=== PATIENT | female | born 1950 | race African-American/Black ===

== ENCOUNTER 2021-09-03 15:15 | Inpatient (IN) | payer MEDICARE, MEDICAID ==
[~2021-09-03] VITALS: Ht 160 cm; Wt 124.7 kg
[2021-09-03] MEDS ORDERED: VANCOMYCIN PER PHARMACY MC ONE (16:30)
[2021-09-03] MEDS ORDERED: DIPHTH,PERTUSS(ACELL),TET TOX 0.5 ML DISP.SYRIN. VAX IM ONE (16:30)
[2021-09-03] MEDS ORDERED: PIPERACILLIN/TAZOBACTAM 4.5 GM in IV NORMAL SALINE 100ML 100 ML IV ONE (16:30)
[2021-09-03] MEDS ORDERED: VANCOMYCIN 2 GM in IV NORMAL SALINE 500ML BAG 500 ML IV ONE (16:45)
[2021-09-03] MEDS ORDERED: CEFEPIME HCL IV Push 2 GM VIAL. IVP ONE (16:45)
--- NOTE | 2021-09-03 17:05 | RAD ---
Exam Date: 09/03/2021 4:41 PM US DPLX VENOUS EXTREMITY LOWER LT Indication: Reason: LLE wound, swelling / Spl. Instructions: / History: . INDICATION: Lower extremity pain/swelling TECHNIQUE: Grayscale sonogram, color Doppler, and spectral Doppler waveform analysis of the lower ex tremity venous system was performed on the left. FINDINGS: The left common femoral, superficial femoral, central greater saphenous, popliteal, posterior tibial and peroneal veins are compressible and demonstrate normal color Doppler flow and normal spontaneous phasic waveforms or normal response to augmentation. IMPRESSION: No evidence of deep venous thrombosis in the left lower extremity. Electronically signed by: Shaq Mcmahon MD (09/03/2021 5:03 PM) [facility]
[2021-09-03] MEDS ORDERED: ONDANSETRON PF 4 MG/2 ML VIAL. IVP PRN ×2 (18:45→19:45)
[2021-09-03] MEDS ORDERED: MORPHINE SULFATE 2 MG/ML INJ. IVP PRN (18:45)
--- NOTE | 2021-09-03 19:01 | PHYS DOC ---
Past Medical History Past Surgical History: No Surgical History Smoking Status: Former Smoker Alcohol Use: None General Adult EDM: Chief Complaint: CELLULITIS HPI: HPI: Patient is a 71 year old female with a history of lymphedema to bilateral lower extremities presented to the ED today complaining of a wound on the left lower extremity that she has had since April 2021. Patient states she has been following up with her own PCP as well as the wound clinic. She states she has been taking liquid cephalexin since April 2021 now with no improvement. She states she was seen by the PCP today and they told her the wound has gotten worse and they requested her to come to the ED for IV antibiotics. Patient denies any fever. Denies any nausea, vomiting. Review of Systems: Review of Systems: Constitutional: Denies fever or chills. [] Eyes: Denies change in visual acuity. [] HENT: Denies nasal congestion or sore throat. [] Respiratory: Denies cough or shortness of breath. [] Cardiovascular: Denies chest pain or edema. [] GI: Denies abdominal pain, nausea, vomiting, bloody stools or diarrhea. [] : Denies dysuria. [] Musculoskeletal: Denies back pain or joint pain. [] Integument: Reports left lower extremity wound Neurologic: Denies headache, focal weakness or sensory changes. [] Psychiatric: Denies depression or anxiety. [] Heart Score: C/O Chest Pain: N/A Risk Factors: Risk Factors: DM, Current or recent (<one month) smoker, HTN, HLP, family history of CAD, obesity. Risk Scores: Score 0 - 3: 2.5% MACE over next 6 weeks - Discharge Home Score 4 - 6: 20.3% MACE over next 6 weeks - Admit for Clinical Observation Score 7 - 10: 72.7% MACE over next 6 weeks - Early Invasive Strategies Current Medications: Current Medications Medications (Trade) Dose Ordered Sig/Jamie Start Time Stop Time Status Last Admin Dose Admin Cefepime HCl (Maxipime) 2 gm 1X ONCE 09/03/21 16:45 09/03/21 16:46 DC 09/03/21 17:08 2 GM Diphtheria/ Tetanus/Acell Pertussis (Boostrix) 0.5 ml ONCE ONCE 09/03/21 16:30 09/03/21 16:33 DC 09/03/21 17:53 0.5 ML Piperacillin Sod/ Tazobactam Sod 4.5 gm/Sodium Chloride 100 ml @ 200 mls/hr 1X ONCE 09/03/21 16:30 09/03/21 16:59 UNV Vancomycin HCl (Vanco Per Pharmacy) 1 each 1X ONCE 09/03/21 16:30 09/03/21 16:31 UNV Vancomycin HCl 2 gm/Sodium Chloride 500 ml @ 250 mls/hr 1X ONCE 09/03/21 16:45 09/03/21 18:44 DC 09/03/21 17:09 250 MLS/HR Allergies: Allergies: Allergies Coded Allergies Type Severity Reaction Last Updated Verified Penicillins Allergy Intermediate 09/03/21 Yes Physical Exam: PE: Constitutional: Well developed, well nourished, no acute distress, non-toxic appearance. [] HENT: Normocephalic, atraumatic, bilateral external ears normal, oropharynx moist, no oral exudates, nose normal. [] Eyes: PERRLA, EOMI, conjunctiva normal, no discharge. [] Neck: Normal range of motion, no tenderness, supple, no stridor. [] Cardiovascular:Heart rate regular rhythm, no murmur [] Lungs & Thorax: Bilateral breath sounds clear to auscultation [] Abdomen: Bowel sounds normal, soft, no tenderness, no masses, no pulsatile masses. [] Skin: Bilateral lower extremities with chronic lymphedema. Left lower extremity with a wound starting from the mid winter to the back of the leg. Wound roughly 12 x 10 cm. The wound is clear drainage draining and smelling. + Bilateral pedal pulses Back: No tenderness, no CVA tenderness. Extremities: See skin documentation Neurologic: Alert and oriented X 3, normal motor function, normal sensory function, no focal deficits noted. [] Psychologic: Affect normal, judgement normal, mood normal. [] Current Patient Data: Vital Signs: Vital Signs Date Time Temp Pulse Resp B/P (MAP) Pulse Ox O2 Delivery O2 Flow Rate FiO2 09/03/21 18:36 88 19 230/92 (138) 98 Room Air 09/03/21 16:00 98.2 98.2 EKG: EKG: [] Radiology/Procedures: Radiology/Procedures: []PROCEDURE: VENOUS LOWER EXTREMITY LEFT Exam Date: 09/03/2021 4:41 PM US DPLX VENOUS EXTREMITY LOWER LT Indication: Reason: LLE wound, swelling / Spl. Instructions: / History: . INDICATION: Lower extremity pain/swelling TECHNIQUE: Grayscale sonogram, color Doppler, and spectral Doppler waveform dagmar lysis of the lower extremity venous system was performed on the left. FINDINGS: The left common femoral, superficial femoral, central greater saphenous, popliteal, posterior tibial and peroneal veins are compressible and demonstrate normal color Doppler flow and normal spontaneous phasic waveforms or normal response to augmentation. IMPRESSION: No evidence of deep venous thrombosis in the left lower extremity. Electronically signed by: Nick Mcmahon MD (09/03/2021 5:03 PM) [facility] DICTATED and SIGNED BY: NICK MCMAHON MD DATE: 09/03/211702 Course & Med Decision Making: Course & Med Decision Making Pertinent Labs and Imaging studies reviewed. (See chart for details) This a 71-year-old female patient with history of lymphedema presenting today with with a wound on the left lower extremity she has had since April 2022. She has been taking cephalexin since April with no improvement. Was sent to the ED for IV antibiotics. Venous Doppler of the left lower extremity is negative. Labs are still pending. Started on cefepime and vancomycin Wound consult placed Patient's blood pressure was 249/148 with a heart rate of 91. At this patient continues to deny history of hypertension and she states she does not take any pills so she will not take blood pressure medicine for now. Spoke with Dr. Rubio who accepted patient for admission. Mary Disclaimer: Mary Disclaimer: This electronic medical record was generated, in whole or in part, using a voice recognition dictation system. Departure Departure Impression: Primary Impression: Wound of left lower extremity Qualified Codes: S81.802A - Unspecified open wound, left lower leg, initial encounter Additional Impression: Elevated blood pressure reading Disposition: ADMITTED INPATIENT Condition: STABLE Referrals: NO PCP (PCP) CORY MACIAS BRUSHER TENDER Sep 03, 2021 19:01
[2021-09-03] MEDS ORDERED: VANCOMYCIN PER PHARMACY MC PRN (19:30)
[2021-09-03] MEDS ORDERED: CALCIUM CARBONATE 500 MG TAB.CHEW PO PRN (19:45)
[2021-09-03] MEDS ORDERED: ACETAMINOPHEN 325 MG TABLET. PO PRN (19:45)
[2021-09-03] MEDS ORDERED: ELECTROLYTE (NON-ICU) PROTOCOL. MC PRN (19:45)
[2021-09-03] MEDS ORDERED: MORPHINE SULFATE 2 MG/ML INJ. IV PRN ×2 (19:45)
[2021-09-03 20:10] VITALS: BP 241/98
[2021-09-03] MEDS ORDERED: CEPH250S30 PO (20:21)
[2021-09-03] MEDS ORDERED: BETA60LO4 TP (20:23)
[2021-09-03] MEDS ORDERED: TRIA15OI TP (20:23)
[2021-09-03] MEDS: SENNOSIDES/DOCUSATE 8.6/50MG TABLET. PO SCH (21:00)
[2021-09-03] MEDS: metroNIDAZOLE 500 MG TABLET PO SCH (21:01)
[2021-09-03] MEDS: HEPARIN for SUB-Q USE 5,000 UNIT/ML VIAL. SQ SCH (21:08)
[2021-09-03 21:20] LABS: BASO # 0.1 x10^3/uL (0.0-0.2); BASO % 1 % (0-3); EOS # 0.2 x10^3/uL (0.0-0.7); EOS % 1 % (0-3); HEMATOCRIT 39.9 % (36.0-47.0); HEMOGLOBIN 12.5 g/dL (12.0-15.5); LYMPH # 2.1 x10^3/uL (1.0-4.8); LYMPH % 20 % (24-48); MEAN CORPUSCULAR HEMOGLOBIN 26 pg (25-35); MEAN CORPUSCULAR HGB CONC 31 g/dL (31-37); MEAN CORPUSCULAR VOLUME 84 fL (79-100); MONO # 0.9 x10^3/uL (0.0-1.1); MONO % 8 % (0-9); NEUT # 7.6 x10^3/uL (1.8-7.7); NEUT % 71 % (31-73); PLATELET COUNT 219 x10^3/uL (140-400); RED BLOOD COUNT 4.75 x10^6/uL (3.50-5.40); RED CELL DISTRIBUTION WIDTH 15.4 % (11.5-14.5); WHITE BLOOD COUNT 10.8 x10^3/uL (4.0-11.0)
[2021-09-03 21:43] LABS: CALCIUM 9.1 mg/dL (8.5-10.1); CREATININE 1.1 mg/dL (0.6-1.0); GFR 59.2; POTASSIUM 4.2 mmol/L (3.5-5.1)
[2021-09-03 21:48] LABS: ALBUMIN 3.5 g/dL (3.4-5.0); ALBUMIN/GLOBULIN RATIO 0.9 (1.0-1.7); TOTAL BILIRUBIN 0.3 mg/dL (0.2-1.0); TOTAL PROTEIN 7.2 g/dL (6.4-8.2)
[2021-09-03 23:22] VITALS: BP 191/78
--- NOTE | 2021-09-04 00:40 | PDOC1 ---
History and Physical Date of Service: DOS: This is an entry for September 03 Allergies: Allergies: Coded Allergies: Penicillins (Verified Allergy, Intermediate, 09/03/21) Current Medications: Current Medications Current Medications Piperacillin Sod/ Tazobactam Sod 4.5 gm/Sodium Chloride 100 ml @ 200 mls/hr 1X ONCE IV ; Start 09/03/21 at 16:30; Stop 09/03/21 at 16:59; Status UNV Vancomycin HCl (Vanco Per Pharmacy) 1 each 1X ONCE MC ; Start 09/03/21 at 16:30; Stop 09/03/21 at 19:38; Status DC Diphtheria/ Tetanus/Acell Pertussis (Boostrix) 0.5 ml ONCE ONCE VAX IM Last administered on 09/03/21at 17:53; Start 09/03/21 at 16:30; Stop 09/03/21 at 16:33; Status DC Cefepime HCl (Maxipime) 2 gm 1X ONCE IVP Last administered on 09/03/21at 17:08; Start 09/03/21 at 16:45; Stop 09/03/21 at 16:46; Status DC Vancomycin HCl 2 gm/Sodium Chloride 500 ml @ 250 mls/hr 1X ONCE IV Last administered on 09/03/21at 17:09; Start 09/03/21 at 16:45; Stop 09/03/21 at 18:44; Status DC Ondansetron HCl (Zofran) 4 mg PRN Q8HRS PRN IVP NAUSEA/VOMITING; Start 09/03/21 at 18:45; Stop 09/04/21 at 18:44 Morphine Sulfate (Morphine Sulfate) 2 mg PRN Q2HR PRN IVP PAIN; Start 09/03/21 at 18:45; Stop 09/04/21 at 18:44 Hydralazine HCl (Apresoline Inj) 10 mg PRN Q4HRS PRN IVP ELEVATED BP, SEE COMM ENTS; Start 09/03/21 at 18:45 Cefepime HCl (Maxipime) 2 gm Q12HR IVP ; Start 09/04/21 at 05:00 Vancomycin HCl (Vanco Per Pharmacy) 1 each PRN DAILY PRN MC SEE COMMENTS; Start 09/03/21 at 19:30 Metronidazole (Flagyl) 500 mg Q8HRS PO Last administered on 09/03/21at 21:01; Start 09/03/21 at 22:00 Ondansetron HCl (Zofran) 4 mg PRN Q6HRS PRN IVP NAUSEA/VOMITING; Start 09/03/21 at 19:45 Calcium Carbonate/ Glycine (Tums) 500 mg PRN Q3HRS PRN PO UPSET STOMACH; Start 09/03/21 at 19:45 Info (Non-Icu Electrolyte Protocol) 1 ea PRN DAILY PRN MC SEE COMMENTS; Start 09/03/21 at 19:45 Morphine Sulfate (Morphine Sulfate) 1 mg PRN Q1HR PRN IV PAIN-SEE COMMENTS; Start 09/03/21 at 19:45 Morphine Sulfate (Morphine Sulfate) 2 mg PRN Q1HR PRN IV PAIN-SEE COMMENTS; Start 09/03/21 at 19:45 Acetaminophen (Tylenol) 650 mg PRN Q6HRS PRN PO Headaches, Temp > 101.5F; Start 09/03/21 at 19:45 Senna/Docusate Sodium (Senna Plus) 1 tab BID PO ; Start 09/03/21 at 21:00 Heparin Sodium (Porcine) (Heparin Sodium) 5,000 unit Q8HRS SQ Last administered on 09/03/21at 21:08; Start 09/03/21 at 20:00 Active Scripts Active Reported Triamcinolone Acetonide 0.1% Oint (Triamcinolone Acetonide) 15 Gm Oint...g. 1 Ilana TP BID MIX WITH EUCERIN DIRECTED BY PHYSICIAN Betamethasone Valerate 60 Ml Lotion 60 Ml TP BID Cephalexin 250 Mg/5 Ml Susp.recon 10 Ml PO BID ROS: Review of Systems Review of System REVIEW OF SYSTEMS: GENERAL: Denies weakness SKIN: No bruising, hair changes or rashes. EYES: No blurred, double or loss of vision. NOSE AND THROAT: No history of nosebleeds, hoarseness or sore throat. HEART: No history of palpitations, chest pain or shortness of breath on exertion. LUNGS: Denies cough, hemoptysis, wheezing or shortness of breath. GASTROINTESTINAL: Denies changes in appetite, nausea, vomiting, diarrhea or constipation. GENITOURINARY: No history of frequency, urgency, hesitancy or nocturia. NEUROLOGIC: Denies history of numbness, tingling, or tremor. PSYCHIATRIC: No history of panic, anxiety or depression. ENDOCRINE: No history of heat or cold intolerance, polyuria or polydipsia. EXTREMITIES: Denies joint pain, pain on walking or stiffness. Physical Exam: Vital Signs: Vital Signs Date Time Temp Pulse Resp B/P (MAP) Pulse Ox O2 Delivery O2 Flow Rate FiO2 09/03/21 23:22 98.6 82 16 191/78 (115) 94 Room Air 98.6 Physcial Exam: GEN: No apparent distress. Alert and oriented HEENT: Normal cephalic, atraumatic, external auditory canals are patent EYES: Extraocular muscles are intact, pupil are equally round and reactive to light and accommodation MUSCULOSKELETAL: Well developed , well nourished, good range of motion ENDOCRINE: No thyromegaly was palpated LYMPHATICS: No cervical chain or axillary nodes were noted HEMATOPOIETIC: No bruising NECK: Supple, no JVD, no thyromegaly was noted LUNGS: Clear to auscultation in all lung diaz without rhonchi or wheezing HEART: RRR, S!, S2 present. Peripheral pulses intact, no obvious murmurs noted ABDOMEN: Soft, nontender. Positive bowel sounds, no organomegaly, normal bow el sounds EXTREMITIES: Without clubbing, cyanosis, or edema. Pedal pulses intact. Negative Homans sign NEUROLOGIC: Normal speech and tone. A&O x 3, moves all extremities, no obvious focal deficits PSYCHIATRIC: Normal affect, normal mood. Stable SKIN: No ulcerations or rashes, good skin turgor, no jaundice VASCULAR: Good capillary refill, neurovascular bundle appears to be intact Labs: Labs: Laboratory Tests Test 09/03/21 21:15 White Blood Count 10.8 x10^3/uL (4.0-11.0) Red Blood Count 4.75 x10^6/uL (3.50-5.40) Hemoglobin 12.5 g/dL (12.0-15.5) Hematocrit 39.9 % (36.0-47.0) Mean Corpuscular Volume 84 fL (79-100) Mean Corpuscular Hemoglobin 26 pg (25-35) Mean Corpuscular Hemoglobin Concent 31 g/dL (31-37) Red Cell Distribution Width 15.4 % (11.5-14.5) Platelet Count 219 x10^3/uL (140-400) Neutrophils (%) (Auto) 71 % (31-73) Lymphocytes (%) (Auto) 20 % (24-48) Monocytes (%) (Auto) 8 % (0-9) Eosinophils (%) (Auto) 1 % (0-3) Basophils (%) (Auto) 1 % (0-3) Neutrophils # (Auto) 7.6 x10^3/uL (1.8-7.7) Lymphocytes # (Auto) 2.1 x10^3/uL (1.0-4.8) Monocytes # (Auto) 0.9 x10^3/uL (0.0-1.1) Eosinophils # (Auto) 0.2 x10^3/uL (0.0-0.7) Basophils # (Auto) 0.1 x10^3/uL (0.0-0.2) Erythrocyte Sedimentation Rate 27 (0-25) Sodium Level 144 mmol/L (136-145) Potassium Level 4.2 mmol/L (3.5-5.1) Chloride Level 107 mmol/L (98-107) Carbon Dioxide Level 27 mmol/L (21-32) Anion Gap 10 (6-14) Blood Urea Nitrogen 18 mg/dL (7-20) Creatinine 1.1 mg/dL (0.6-1.0) Estimated GFR (Cockcroft-Gault) 59.2 BUN/Creatinine Ratio 16 (6-20) Glucose Level 102 mg/dL (70-99) Lactic Acid Level 0.7 mmol/L (0.4-2.0) Calcium Level 9.1 mg/dL (8.5-10.1) Total Bilirubin 0.3 mg/dL (0.2-1.0) Aspartate Amino Transf (AST/SGOT) 10 U/L (15-37) Alanine Aminotransferase (ALT/SGPT) 13 U/L (14-59) Alkaline Phosphatase 61 U/L (46-116) C-Reactive Protein, Quantitative 5.9 mg/L (0-3.3) Total Protein 7.2 g/dL (6.4-8.2) Albumin 3.5 g/dL (3.4-5.0) Albumin/Globulin Ratio 0.9 (1.0-1.7) Procalcitonin < 0.10 ng/mL (0.00-0.10) Laboratory Tests Test 09/03/21 21:15 White Blood Count 10.8 x10^3/uL (4.0-11.0) Red Blood Count 4.75 x10^6/uL (3.50-5.40) Hemoglobin 12.5 g/dL (12.0-15.5) Hematocrit 39.9 % (36.0-47.0) Mean Corpuscular Volume 84 fL (79-100) Mean Corpuscular Hemoglobin 26 pg (25-35) Mean Corpuscular Hemoglobin Concent 31 g/dL (31-37) Red Cell Distribution Width 15.4 % (11.5-14.5) Platelet Count 219 x10^3/uL (140-400) Neutrophils (%) (Auto) 71 % (31-73) Lymphocytes (%) (Auto) 20 % (24-48) Monocytes (%) (Auto) 8 % (0-9) Eosinophils (%) (Auto) 1 % (0-3) Basophils (%) (Auto) 1 % (0-3) Neutrophils # (Auto) 7.6 x10^3/uL (1.8-7.7) Lymphocytes # (Auto) 2.1 x10^3/uL (1.0-4.8) Monocytes # (Auto) 0.9 x10^3/uL (0.0-1.1) Eosinophils # (Auto) 0.2 x10^3/uL (0.0-0.7) Basophils # (Auto) 0.1 x10^3/uL (0.0-0.2) Erythrocyte Sedimentation Rate 27 (0-25) Sodium Level 144 mmol/L (136-145) Potassium Level 4.2 mmol/L (3.5-5.1) Chloride Level 107 mmol/L (98-107) Carbon Dioxide Level 27 mmol/L (21-32) Anion Gap 10 (6-14) Blood Urea Nitrogen 18 mg/dL (7-20) Creatinine 1.1 mg/dL (0.6-1.0) Estimated GFR (Cockcroft-Gault) 59.2 BUN/Creatinine Ratio 16 (6-20) Glucose Level 102 mg/dL (70-99) Lactic Acid Level 0.7 mmol/L (0.4-2.0) Calcium Level 9.1 mg/dL (8.5-10.1) Total Bilirubin 0.3 mg/dL (0.2-1.0) Aspartate Amino Transf (AST/SGOT) 10 U/L (15-37) Alanine Aminotransferase (ALT/SGPT) 13 U/L (14-59) Alkaline Phosphatase 61 U/L (46-116) C-Reactive Protein, Quantitative 5.9 mg/L (0-3.3) Total Protein 7.2 g/dL (6.4-8.2) Albumin 3.5 g/dL (3.4-5.0) Albumin/Globulin Ratio 0.9 (1.0-1.7) Procalcitonin < 0.10 ng/mL (0.00-0.10) Justifications for Admission Other Justification VERO MARES MD Sep 04, 2021 00:40
--- NOTE | 2021-09-04 01:17 | NUR ---
Pharmacy Vancomycin Dosing Note S:Consulted to monitor and dose vancomycin started . O:JEANNE GLEZ is a 71 year old F with Cellulitis . Height: 5 feet, 3 inches Weight: 125.2 kg [place] Body Weight: 52.40 Adjusted Body Weight: 81.52 Dosing Weight: Actual Other Antibiotics: cefepime 4/5 - metronidazole 4/5 - LABS: Last BUN: 18 Last Creatinine: 1.1 Creatinine Clearance: 60 mL/min Last WBC: 10.8 Last Procalcitonin: <0.10 Tmax (past 24 hours): 98.6 Microbiology: I/O: Drug Levels: Last level: on at Last dose given 09/03/21 at 1700 Vancomycin Dosing: Loading Dose: x1 Dosing Weight: Actual Target Trough: 10-20 A: Based on: WEIGHT, RENAL FUNCTION, INFECTION TYPE, P: 1. INITIATE Vancomycin 2000 mg IV q18h 2. Follow up Trough level on 09/05/21 at 2230 3. Pharmacy will continue to monitor, follow and adjust therapy as needed. MARTA MARES [facility], 09/04/21 0118
[2021-09-04 03:15] VITALS: BP 166/66
[2021-09-04] MEDS: metroNIDAZOLE 500 MG TABLET PO SCH ×3 (05:07→22:00)
[2021-09-04] MEDS: CEFEPIME HCL IV Push 2 GM VIAL. IVP SCH (05:07)
[2021-09-04] MEDS: HEPARIN for SUB-Q USE 5,000 UNIT/ML VIAL. SQ SCH ×3 (05:21→22:00)
[2021-09-04 05:52] LABS: BASO % 1 % (0-3); EOS # 0.1 x10^3/uL (0.0-0.7); EOS % 1 % (0-3); HEMATOCRIT 35.5 % (36.0-47.0); LYMPH # 1.4 x10^3/uL (1.0-4.8); LYMPH % 19 % (24-48); MEAN CORPUSCULAR HEMOGLOBIN 26 pg (25-35); MEAN CORPUSCULAR HGB CONC 31 g/dL (31-37); MEAN CORPUSCULAR VOLUME 84 fL (79-100); MONO # 0.7 x10^3/uL (0.0-1.1); MONO % 9 % (0-9); NEUT # 5.3 x10^3/uL (1.8-7.7); NEUT % 70 % (31-73); PLATELET COUNT 197 x10^3/uL (140-400); RED BLOOD COUNT 4.24 x10^6/uL (3.50-5.40); RED CELL DISTRIBUTION WIDTH 15.5 % (11.5-14.5); WHITE BLOOD COUNT 7.6 x10^3/uL (4.0-11.0)
[2021-09-04 06:09] LABS: ALBUMIN/GLOBULIN RATIO 0.9 (1.0-1.7); CALCIUM 8.8 mg/dL (8.5-10.1); CREATININE 0.9 mg/dL (0.6-1.0); GFR 74.7; POTASSIUM 3.9 mmol/L (3.5-5.1); TOTAL BILIRUBIN 0.5 mg/dL (0.2-1.0); TOTAL PROTEIN 6.5 g/dL (6.4-8.2)
[2021-09-04 07:15] VITALS: BP 187/66
[2021-09-04] MEDS: SENNOSIDES/DOCUSATE 8.6/50MG TABLET. PO SCH ×2 (09:00→21:00)
[2021-09-04] MEDS: LACTOBACILLUS RHAMNOSUS GG 1 CAPSULE. PO SCH ×2 (09:00→21:00)
[2021-09-04] MEDS ORDERED: VANCOMYCIN 2 GM in IV NORMAL SALINE 500ML BAG 500 ML IV SCH (11:00)
[2021-09-04 11:08] VITALS: BP 177/81
[2021-09-04 14:40] VITALS: BP 124/61
--- NOTE | 2021-09-04 16:24 | NUR ---
Wound/Ostomy Care Wound Type/Assessment: Patient seen per wound care consult. See wound assessment. Patient has lymphedema in the left lower leg with cellulitis that has patient has had now for over a year. She had seen wound care elsewhere but stopped going and she was seen in the lymphedema clinic here at [facility] but was sent to the ER. The drainage is foul and the edema is a 3+. Wound cleansed and assessed. Treatment Recommendations/Plan: Recommendations to paint with Betadine and leave open to air daily. Betadine applied. Education provided: Patient educated on wound care and POC. Offloading surface/device: N/A Recommended Referrals/Tests: Patient will follow up with lymphedema and wound care. Discharge Recommendations for dressings: Dressing change dressing instructions left in room. Wound care will follow up on 09/11/21 and following discharge.
[2021-09-04 19:40] VITALS: BP 218/60
[2021-09-04] MEDS: hydrALAZINE 20 MG/ML VIAL. IVP PRN (20:11)
[2021-09-04] MEDS ORDERED: diphenhydrAMINE 50 MG/ML VIAL IVP PRN (21:00)
[2021-09-04 23:19] VITALS: BP 185/111
[2021-09-05] MEDS: CEFEPIME HCL IV Push 2 GM VIAL. IVP SCH ×3 (00:04→21:53)
[2021-09-05] MEDS: hydrALAZINE 20 MG/ML VIAL. IVP PRN ×2 (00:05→13:45)
--- NOTE | 2021-09-05 05:34 | NUR ---
09/04/21 2100 pt c/o sob and rash. BP 208/111, hr- 105 O2- 91%. Dr. Jensen notified. Vanco dc'd, Benadryl 50mg IVP and Hydralazine 10mg administered. Pt states she is feeling better approx. 30 minutes later pt states she feels "much better". Pt refused her HS medications except for Cefepime. 09/05/21 0500 Pt's BP is 210/83 HR-97. Pt refused Hydralazine stating "I don't like how it makes me feel". Charge nurse Natasha, and myself attempted to educate the pt on risks of not lowering her blood pressure. Pt still refuses and states "I don't like you pushing medications on me". Will continue to monitor pt's blood pressure and notify physician for any order changes.
[2021-09-05] MEDS: HEPARIN for SUB-Q USE 5,000 UNIT/ML VIAL. SQ SCH ×3 (06:00→21:54)
[2021-09-05] MEDS: metroNIDAZOLE 500 MG TABLET PO SCH ×3 (06:00→21:53)
[2021-09-05 07:00] VITALS: BP 190/82
[2021-09-05] MEDS: SENNOSIDES/DOCUSATE 8.6/50MG TABLET. PO SCH ×2 (07:24→21:53)
[2021-09-05] MEDS: LACTOBACILLUS RHAMNOSUS GG 1 CAPSULE. PO SCH ×2 (07:24→21:53)
[2021-09-05 08:02] LABS: GFR 66.1
--- NOTE | 2021-09-05 09:40 | NUR ---
Patient is refusing medication and assessment at this time. Patient states she feels like we are giving too much medication. Patient states she does not feel comfortable with so many people " trying to get me to take medication. I dont think I need it." Patient was explained risks of not taking medication for HTN and antibiotic. Patient verbalized understanding of risks and declined medication again.
[2021-09-05 11:00] VITALS: BP 206/84
--- NOTE | 2021-09-05 13:47 | NUR ---
patient refusing to take 1400 medication. Patient agreeable to " try" high blood pressure medication one more time.
[2021-09-05 15:00] VITALS: BP 198/73
[2021-09-05 19:55] VITALS: BP 205/75
--- NOTE | 2021-09-05 20:59 | PDOC ---
[employer] PROGRESS NOTE Date of Service DOS: DATE: 09/05/21 TIME: 20:59 Vitals/I&O Vitals/I&O: Vital Signs Date Time Temp Pulse Resp B/P (MAP) Pulse Ox O2 Delivery O2 Flow Rate FiO2 09/05/21 20:20 Room Air 09/05/21 19:55 98.3 93 20 205/75 (118) 99 2.0 98.3 I & O 09/04/21 09/04/21 09/05/21 15:00 23:00 07:00 Intake Total 110 ml Balance 110 ml Labs Labs: Laboratory Tests Test 09/05/21 07:25 Creatinine 1.0 mg/dL (0.6-1.0) Estimated GFR (Cockcroft-Gault) 66.1 Assessment and Plan Assessmemt and Plan Problems Medical Problems: (1) Elevated blood pressure reading Status: Acute (2) Wound of left lower extremity Status: Acute Comment Review of Relevant I have reviewed the following items tessa (where applicable) has been applied. Justifications for Admission Other Justification VERO MARES MD Sep 05, 2021 20:59
--- NOTE | 2021-09-05 21:54 | NUR ---
Patient refusing all ordered medications tonight. Patient states "I am going home tomorrow."
[2021-09-05 23:27] VITALS: BP 192/78
[2021-09-06 03:08] VITALS: BP 182/64
[2021-09-06] MEDS: metroNIDAZOLE 500 MG TABLET PO SCH ×2 (05:27→14:00)
[2021-09-06] MEDS: HEPARIN for SUB-Q USE 5,000 UNIT/ML VIAL. SQ SCH ×2 (05:28→14:00)
[2021-09-06 07:30] VITALS: BP 190/61
[2021-09-06] MEDS: CEFEPIME HCL IV Push 2 GM VIAL. IVP SCH (09:00)
[2021-09-06] MEDS: LACTOBACILLUS RHAMNOSUS GG 1 CAPSULE. PO SCH (09:00)
[2021-09-06] MEDS: SENNOSIDES/DOCUSATE 8.6/50MG TABLET. PO SCH (09:00)
--- NOTE | 2021-09-06 09:42 | NUR ---
patient refused her morning medication. 0900 Cefepime and hydralazine for her elevated BP
[2021-09-06 11:03] VITALS: BP 209/82
[2021-09-06] MEDS ORDERED: CLIN-94 PO (12:03)
--- NOTE | 2021-09-06 14:02 | NUR ---
1344 patient discharged to home. Taken out by wheelchair to personal vehicle
== END 2021-09-06 13:30 | disposition home or self-care (01) | DRG 605 ==
LOC: ER 15:15 → 4 NORTH 17:35
PROVIDERS: ADMIT Student in an Organized Health Care Education/Training Program; ATTEND Student in an Organized Health Care Education/Training Program
DX: S81.802A Unspecified open wound, left lower leg, initial encounter (principal); R03.0 Elevated blood-pressure reading, without diagnosis of hypertension; X58.XXXA Exposure to other specified factors, initial encounter; Z88.0 Allergy status to penicillin; Y93.89 Activity, other specified; Z87.891 Personal history of nicotine dependence; Y92.89 Other specified places as the place of occurrence of the external cause; Y99.8 Other external cause status; Z88.1 Allergy status to other antibiotic agents
CPT/HCPCS: 36415; 80053; 82565; 83605; 84145; 85025; 85651; 86140; 87040; 90471; 90715; 93971; 96365; 96375; J0360; J0692; J1644; J3370; J7040; 99285-25; G0378

== ENCOUNTER → 2021-10-25 | Outpatient (CLI) | payer MEDICARE, MEDICAID ==
[~2021-10-25] MED LIST: BETA60LO4 TP; CEPH250S30 PO; CLIN-94 PO; TRIA15OI TP
--- NOTE | 2021-10-25 15:54 | CARD ---
MR#: [id number] Date of Study: 10/25/2021 Ordering Physician: DERRICK MARIN, Referring Physician: DERRICK MARIN, Yung: MONICA HAMMOND [facility] APPROVED REPORT EXAM: Two-dimensional and M-mode echocardiogram with Doppler and color Doppler. Other Information Quality : GoodHR: 72bpm Rhythm : NSR INDICATION Dyspnea RISK FACTORS Hypertension Obesity Hyperlipidemia 2D DIMENSIONS RVDd2.8 (2.9-3.5cm)Left Atrium(2D)4.1 (1.6-4.0cm) IVSd1.3 (0.7-1.1cm)Aortic Root(2D)2.8 (2.0-3.7cm) LVDd4.5 (3.9-5.9cm)LVOT Diameter1.9 (1.8-2.4cm) PWd1.3 (0.7-1.1cm)LVDs3.1 (2.5-4.0cm) FS (%) 30.4 %SV52.8 ml Aortic Valve AoV Peak Jesse.146.9cm/Jojo Peak GR.10.2mmHg LVOT Peak Jesse.98.6cm/sAVA (VMAX)1.87cm2 Mitral Valve MV E Pfbwobdt620.5cm/sMV DECEL [id number] MV A Srjhgmep582.4cm/sE/A Ratio1.0 Pulmonary Valve PV Peak Fsomwjnr15.5cm/s Tricuspid Valve TR P. Qfnsbuej778kr/sRAP IKJYRQHJ8voCf TR Peak Gr.45hxJmRCFG20mfHq Pulmonary Vein S1 Ndulbxdk24.3cm/sD2 Gqpgobwy07.2cm/s LEFT VENTRICLE The left ventricle is normal size. There is mild concentric left ventricular hypertrophy. The left ve ntricular systolic function is normal. LV ejection fraction is 55 to 60%. No regional wall motion abn ormalities noted. The left ventricular diastolic function is normal. No left ventricle thrombus noted on this study. There is no ventricular septal defect visualized. There is no left ventricular aneury sm. There is no mass noted in the left ventricle. RIGHT VENTRICLE The right ventricle is normal size. The right ventricle is mildly hypertrophied. The right ventricula r systolic function is normal. ATRIA The left atrium is mildly dilated. The right atrium size is normal. The interatrial septum is intact with no evidence for an atrial septal defect or patent foramen ovale as noted on 2-D or Doppler imagi ng. AORTIC VALVE The aortic valve is trileaflet. Doppler and Color Flow revealed no significant aortic regurgitation. There is no significant aortic valvular stenosis. There is no aortic valvular vegetation. MITRAL VALVE The mitral valve is mildly thickened. There is no evidence of mitral valve prolapse. There is no mitr al valve stenosis. Doppler and Color-flow revealed mild mitral regurgitation. TRICUSPID VALVE The tricuspid valve is normal in structure and function. Doppler and Color Flow revealed mild tricusp id regurgitation. The PA pressure was estimated at 40 mmHg. There is no tricuspid valve prolapse or v egetation. There is no tricuspid valve stenosis. PULMONIC VALVE The pulmonary valve is normal in structure and function. There is no pulmonic valvular regurgitation. There is no pulmonic valvular stenosis. GREAT VESSELS The aortic root is normal in size. The ascending aorta is normal in size. The pulmonary artery is nor mal. The IVC is normal in size and collapses >50% with inspiration. PERICARDIAL EFFUSION There is no pleural effusion. The pericardium appears normal. Critical Notification Critical Value: No <Conclusion> The left ventricle is normal size. The left ventricular systolic function is normal. LV ejection fraction is 55 to 60%. There is mild concentric left ventricular hypertrophy. Doppler and Color Flow revealed no significant aortic regurgitation. There is no significant aortic valvular stenosis. Doppler and Color-flow revealed mild mitral regurgitation. Doppler and Color Flow revealed mild tricuspid regurgitation. The PA pressure was estimated at 40 mmHg. Signed by : Jose Smith MD Electronically Approved : 10/25/2021 15:54:05
== END ==
LOC: ECHO 09:30
PROVIDERS: ATTEND Internal Medicine
DX: I08.1 Rheumatic disorders of both mitral and tricuspid valves (principal); I16.0 Hypertensive urgency
CPT/HCPCS: 93306; C8929